=== PATIENT | male | born 2000 | race Caucasian/White ===

== ENCOUNTER 2019-11-15 19:16 | Emergency (ER) | payer MEDICAID, SELFPAY ==
--- NOTE | 2019-11-15 19:15 | RT.EKG_ITS ---
APPROVED REPORT Exam: Resting ECG Patient Location: E HR:95 bpm ECG Measurements Heart Rate 95 AXIS OK 143 P 66 QRSd 93 QRS 54 QT 323 T 37 QTc 405 Conclusion Sinus rhythm...normal P axis, V-rate 60- 99. Sinus w/ rate variation. No STEMI. I have reviewed and interpreted ECG and agree with software generated interpretation.
[2019-11-15 19:22] VITALS: BP 176/80; PULSE 109; RESP 16; TEMP 36.8; O2SAT 100
[2019-11-15 19:34] VITALS: RESP 16
--- NOTE | 2019-11-15 19:45 | DI.RAD_ITS ---
EXAM: XR CHEST 2V PA LATERAL CLINICAL HISTORY: Chest pain TECHNIQUE: 2D digital imaging was performed. COMPARISON: No exams were available for comparison FINDINGS: The heart is not enlarged. The lungs are clear and well expanded. No pleural effusion seen. Mediastin al contours appear intact. IMPRESSION: Normal chest RADIATION DOSE DELIVERED: Total DLP
--- NOTE | 2019-11-15 19:52 | ED.GENADUL_ITS ---
Discharge Plan Disposition Patient Disposition: HOME Condition: Stable Discharge Details Clinical Impression: Chest wall pain Primary Care Provider: None,None ED Provider: Miladis Duke Home Meds and New Rx's Prescriptions: No Action No Known Home Meds RF: 0 Discharge Instructions Instructions: Chest Wall Pain (ED) Additional Instructions: Follow up with primary care provider in 3-5 days. Return to ED sooner if any worsening or concerns. Increase oral fluids. Please take Tylenol or Ibuprofen with food every 4-6 hours as needed for pain and swelling. Today your chest x- ray was within normal limits. Your cardiac work-up including troponin which is a cardiac specific enzyme was within normal limits. Return to the ED or be seen sooner for any fever, worsening pain, nausea vomiting or any concerns. Medical Decision Making 19-year-old male presents to the ER with left-sided chest pain. At this time work-up ordered including EKG, chest x-ray, CBC, CMP, troponin. Imaging protocol: XR of the chest Views: 2 views. COMPARISON: No relevant prior studies available. FINDINGS: Lungs: Unremarkable. No consolidation. Pleural space: Unremarkable. No pleural effusion. No pneumothorax. Heart/Mediastinum: Unremarkable. No cardiomegaly. Bones/joints: Unremarkable. IMPRESSION: No acute findings. Work-up is largely within normal limits, he does not have a white blood cell count, no leukocytosis, electrolytes are all within normal limits. Troponin is less than 0.05. He does have slightly elevated blood pressure initially was 176/80 second reading is 148/76. Differential diagnosis includes anxiety, costochondritis, coronary artery disease, pleuritis. HPI General Mode of arrival: ambulatory . Date/Time Provider Initiated Documentation: 11/15/19 19:31 . Limitations to Documentation: no limitations . Information obtained by: patient . HPI Narrative: 19-year-old male presents to the ED with chief complaint of chest pain which he reports as sharp and intermittent which started yesterday afternoon around 230. He states it radiated up his the left side of his neck and down left side of his arm. Denies any radiation into his back. No associated symptoms including nausea vomiting diarrhea. No shortness of breath or cough. Denies fever. He is normally healthy non-smoker denies any trauma. Chest pain is nonreproducible to palpation upon initial exam. Lung sounds are clear to auscultation bilaterally. Related Data Home Medications Medication Instructions Recorded Confirmed Unknown [No Known Home Meds] 11/15/19 11/15/19 Allergies Allergy/AdvReac Type Severity Reaction Status Date / Time No Known Allergies Allergy Unverified 11/15/19 19:26 General Stated Complaint: Chest Pain ELENO: 2 Review of Systems Narrative: Constitutional: Negative for weight loss, alert and oriented, well groomed, normal body habitus, appears comfortable. HEENT: Denies trauma, headaches, blurry vision, nasal discharge, sore throat, trouble swallowing. Chest: Denies palpitations, irregular rhythm, hypertension. Positive chest p ain. Respiratory: Denies Shortness of breath, cough, hemoptysis. GI: Denies abdominal pain, nausea, vomiting, diarrhea, constipation. : Denies dysuria, hematuria, flank pain, rectal bleeding. Neuro: Denies dizziness, blurry vision, weakness, syncope, headache or facial numbness. Hematologic: Denies easy bruising, intolerance to heat or cold, hair loss. [facility] Social History Smoking/Tobacco Use Status: Current-Occasional Tobacco Type: cigarettes Drug use: Daily Substance use type: marijuana Do you feel safe at home: Yes Do you feel safe in your relationship?: Yes Exam Narrative Exam Narrative: Constitutional: Alert and oriented x3. Appears stated age. Normal body habitus. Head: Normocephalic, no trauma. Eyes: Pupils PERRLA, Red reflex noted, EOM's intact. Eyelids symmetrical without lesions, discharge, or swelling. ENT: Bilateral TM's WNL, External ear normal to inspection, no mastoid TTP, swelling, or erythema, Nasal turbinates WNL, no nasal discharge. Normal de ntition, Posterior pharynx WNL, no exudate. Chest: RRR, Normal S1, S2, distal pulses intact. Resp: Lungs clear to auscultation bilaterally, no wheezes, rales, or rhonchi. Musculoskeletal: Normal gait, 5/5 strength to all four extremities. Skin: No suspicious rashes or lesions. Capillary refill less than 2 sec. Neurologic: Cranial nerves II-XII intact. Alert and oriented x 3. DTR's intact. Hematologic/Lymphatic: No ecchymosis, no lymphadenopathy. Course Vital Signs Vital signs: Vital Signs Temperature 36.8 C 11/15/19 19:22 Pulse 109 H 11/15/19 19:22 Respiratory Rate 16 11/15/19 19:22 Blood Pressure 176/80 H 11/15/19 19:22 Pulse Oximetry 100 11/15/19 19:22 Temperature 36.8 C 11/15/19 19:22 Temperature Source Skin 11/15/19 19:22 Pulse 109 H 11/15/19 19:22 Respiratory Rate 16 11/15/19 19:34 Respiratory Effort 11/15/19 19:34 Respiratory Depth Normal 11/15/19 19:34 Respiratory Pattern Normal 11/15/19 19:34 Blood Pressure 176/80 H 11/15/19 19:22 Blood Pressure Position Sitting 11/15/19 19:22 Pulse Oximetry 100 11/15/19 19:22 Oxygen Delivery Method Room Air 11/15/19 19:22 Oxygen Flow Rate 0 11/15/19 19:22 Pain Level 3 11/15/19 19:22
[2019-11-15 20:16] LABS: Abs Immature Grans 0.02 10^3/uL (0.0-0.06); Absolute Basophil Count 0.06 10^3/uL (0.0-0.2); Absolute Eosinophil Count 0.19 10^3/uL (0.0-0.7); Absolute Lymphocyte Count 2.86 10^3/uL (1.2-3.4); Absolute Monocyte Count 0.82 10^3/uL (0.1-0.8); Absolute Neutrophil Count 6.17 10^3/uL (1.2-6.7); Basophils % 0.6; Eosinophils % 1.9; HCT 48.7 % (40.0-50.0); HGB 16.6 g/dL (13.5-17.5); Immature Grans % 0.2; Lymphocytes % 28.3; MCH 30.1 pg (27.0-33.0); MCHC 34.1 % (32.0-36.0); MCV 88.4 fL (80-95); Monocytes % 8.1; Neutrophils % 60.9; Nucleated RBC 0 %; Platelet Count 257 10^3/uL (130-400); RBC 5.51 10^6/uL (4.36-5.78); RDW-SD 39.1 fL; WBC 10.12 10^3/uL (4.4-10.8)
--- NOTE | 2019-11-15 20:22 | DI.VRAD_ITS ---
PROCEDURE INFORMATION: Exam: XR Chest, 2 Views Exam date and time: 11/15/2019 7:52 PM Age: 19 years old Clinical indication: Radiating; Patient HX: Chest pain since yesterday PT states pain is spreading and worse TECHNIQUE: Imaging protocol: XR of the chest Views: 2 views. COMPARISON: No relevant prior studies available. FINDINGS: Lungs: Unremarkable. No consolidation. Pleural space: Unremarkable. No pleural effusion. No pneumothorax. Heart/Mediastinum: Unremarkable. No cardiomegaly. Bones/joints: Unremarkable. IMPRESSION: No acute findings. Dictated and Authenticated by: Tyson Kumar MD. Ordering:JAISON Redding MD
[2019-11-15 20:36] LABS: ALT 23 U/L (16-63); AST 19 U/L (15-37); Albumin 4.2 g/dL (3.4-5.0); Alkaline Phosphatase 70 U/L (46-116); BUN 17 mg/dL (7-18); Bilirubin, Total 0.4 mg/dL (0.2-1.0); CREATININE 0.89 mg/dL (0.70-1.30); Calcium 9.3 mg/dL (8.5-10.1); Chloride 102 mmol/L (98-107); Glucose 112 mg/dL (74-106); Magnesium 1.8 mg/dL (1.8-2.4); Potassium 3.5 mmol/L (3.5-5.1); Sodium 137 mmol/L (136-145); Total Protein 7.8 g/dL (6.4-8.2)
[2019-11-15] MEDS: Ketorolac 10 MG TAB PO (20:49)
[2019-11-15 20:52] LABS: Troponin I < 0.05 ng/mL (<0.06)
[2019-11-15 21:17] VITALS: BP 148/76; PULSE 91; RESP 16; O2SAT 99
== END 2019-11-15 21:10 | disposition home or self-care (01) ==
PROVIDERS: Emergency Provider Registered Nurse Emergency
DX: R07.81 Pleurodynia (principal); R03.0 Elevated blood-pressure reading, without diagnosis of hypertension
CPT/HCPCS: 36415; 80053; 93005; 99285; 71046; 83735; 84484; 85025; 93010; 99284

== ENCOUNTER 2019-12-02 18:21 | Outpatient (REF) | payer MEDICAID, SELFPAY ==
[2019-12-02 18:26] LABS: Calculated LDL 136 mg/dL (<100); Cholesterol 192 mg/dL (<200); HDL Cholesterol 43 mg/dL (40-60); Triglyceride 66 mg/dL (<150)
== END 2019-12-02 18:41 ==
LOC: LBN 18:21
PROVIDERS: Visit Provider Family Medicine
DX: R07.89 Other chest pain (principal); Z82.49 Family history of ischemic heart disease and other diseases of the circulatory system
CPT/HCPCS: 80061

== ENCOUNTER 2019-12-07 00:39 | Outpatient (CLI) | payer MEDICAID, SELFPAY ==
--- NOTE | 2019-12-07 12:30 | ETT_ITS ---
APPROVED REPORT Exam: Exercise Treadmill Patient Location: Out-Patient Room/Bed: Stress Nurse: Lashanda Ayon RN BMI: 30.04 Baseline Rhythm: Sinus Arrhythmia Comment: 0.5mm ST elevation noted in leads II, III, aVF, V2, V3, V4, V5, V6 Indications: 4/10 dull left sided chest pain radiating to neck. Pain occurs at rest daily, lasting an ywhere from 5 to 15 min. Medical History Medical History: None. Cardiac Medications: None. Allergies: No known drug allergies Cardiac Risk Factors: FHX of CAD, Smoking (former) Previous Cardiac Procedures: None. Pretest Chest Pain Characteristics: No chest pain Exercise History: Sedentary Lung Sounds: Clear to auscultation Heart Sounds: Regular Stress Test Details Test: Exercise stress testing was performed using a Osman protocol. Rest Stress HR Resting HR Supine: 79 bpm Max Heart Rate (APMHR): 199 bpm Resting HR Standin bpm Target HR (85% APMHR): 169 bpm Max HR Achieved: 197 bpm % of APMHR: 99 Recovery HR: 101 bpm HR response to stress: Normal HR response to stress BP Resting BP Supine: 122/70 mmHg Resting BP Standin/72 mmHg Max BP: 192/56 mmHg Recovery BP: 124/70 mmHg BP response to stress: Normal blood pressure response to stress. ECG Resting ECG: Sinus Arrhythmia Comment: 0.5mm ST elevation noted in leads II, III, aVF, V2, V3, V4, V5, V6 Stress ECG: Sinus Tachycardia ST Change: no significant ST segment changes noted Arrhythmia: occasional PVC, couplet Recovery ECG: Sinus Rhythm Recovery ST Change: Upsloping ST depression Lead(s): V4, V5, V6 Recovery ST Deviation: 1 mm Recovery Arrhythmia: None. Clinical Reason for Termination: Fatigue Stress Symptoms: Dizziness Exercise duration: 11 min41 sec Highest Stage Reached: Stage 4: 4.2 mph at 16% grade. Exercise capacity: 13.48 METs Stress ECG Conclusion 1. Electrocardiogram was normal 2. Patient exercised on the Osman protocol and completed a workload of 13.48 METS 3. Normal heart rate and blood pressure response to exercise. The patient achieved 99% of predicted heart rate for age 4. Electrocardiographically there was no evidence of myocardial ischemia 5. There were no significant dysrhythmias 6. Moore treadmill score score is 11, low risk Stress Test Summary STAGE Time (mins) Speed (mph) Grade (%) HR BP SYMPTOMS METS Supine 79 122/70 Standing 95 130/72 1 3 1.7 10 129 142/68 4.6 2 6 2.5 12 164 164/60 neck pulsing 7 3 9 3.4 14 188 188/64 10.2 1 min recovery 171 lightheaded 3 min recovery 124 192/56 symptoms resolved 6 min recovery 124 160/64 9 min recovery 114 140/66 12 min recovery 114 140/66 15 min recovery 108 124/70 25 min recovery 101
== END 2019-12-07 00:59 ==
PROVIDERS: Visit Provider Family Medicine
DX: R07.89 Other chest pain (principal); Z82.49 Family history of ischemic heart disease and other diseases of the circulatory system; Z87.891 Personal history of nicotine dependence
CPT/HCPCS: 93017

== ENCOUNTER 2021-01-02 16:39 | Emergency (ER) | payer MEDICAID, SELFPAY ==
[2021-01-02 16:44] VITALS: BP 159/65; PULSE 78; RESP 16; TEMP 36.5; O2SAT 98
--- NOTE | 2021-01-02 16:45 | DI.RAD_ITS ---
Exam(s) XR HAND RT COMPLETE EXAM: XR HAND RT COMPLETE CLINICAL HISTORY: Hand Injury, Pinky Finger pain R/O Fracture TECHNIQUE: COMPARISON: No exams were available for comparison FINDINGS: Three views were obtained. There is a fracture of the distal aspect of the 5th metacarpal with mild comminution. There is volar and radial angulation of distal fracture fragments. No other fracture s een. IMPRESSION: RADIATION DOSE DELIVERED: Total DLP
--- NOTE | 2021-01-02 17:04 | ED.GENADUL_ITS ---
Discharge Plan Disposition Patient Disposition: HOME Condition: Stable Discharge Details Clinical Impression: Displaced fracture of neck of right fifth metacarpal bone Primary Care Provider: Tyson Sequeira ED Provider: Miladis Duke Home Meds and New Rx's Prescriptions: No Action No Known Home Meds RF: 0 Discharge Instructions Instructions: Boxer Fracture (ED) Additional Instructions: Rest, ice, compression, elevation. Please follow-up with orthopedics this week. Keep the splint clean and dry. Loosen the Orlin wrap if your fingers turn cold blue numb or tingling. Please take Tylenol or Ibuprofen with food every 4-6 hours as needed for pain and swelling. Return to the ER if fingers continue to be cold blue numb or tingly or if you have increase pain not relieved by Tylenol or ibuprofen. Orthopedics should be contacting you for follow-up appointment however, you can also call them to make an appointment. Stand Alone Forms: Work Release Referrals: Jere Díaz MD [ [facility] STAFF PHYSICIAN] - Medical Decision Making 20-year-old male presents to the ER with chief complaint of right hand pain status post injury approximately 5 days ago on night. Patient reports she was at work and punched a box of frozen turkey. Since then he is had some lateral hand pain and states digit pain. He is having trouble extending fully his right pinky. He does have a healing contusions noted to the dorsum of his hand. Cap refill less than 2 seconds CMS intact distally. Patient reports that he initially started taking naproxen but he ran out so he has been taking aspirin which he took twice today. 1722: Spoke with Dr. Díaz with orthopedics who was able to personally view the x-rays. He recommends a plaster ulnar gutter boxers splint and also attempting at a Patrick maneuver closed reduction. Will discuss digital block with patient and closed reduction and splint application with follow-up with orthopedics. Discussed digital block with patient who verbalized understanding and is in agreement with plan. See procedure note above, attempt at the SOLO maneuver to reduce the fracture performed. Plaster ulnar gutter boxer splint applied. CMS intact post splint application. Post-reduction x-rays show minimal movement of the distal neck of the fifth metacarpal, instructed patient to follow-up with orthopedics he verbalizes understanding. Imaging protocol: XR Right hand. Views: 1 or 2 views. COMPARISON: CR XR HAND RT COMPLETE 01/02/2021 5:06 PM FINDINGS: Bones/joints: Fifth metacarpal fracture again seen. No substantial change in alignment. Soft tissues: Unremarkable Other findings: Casting material not present. IMPRESSION: No adverse change Thank you for allowing us to participate in the care of your patient. Dictated and Authenticated by: Kenn Cortes MD Imaging protocol: XR Right hand. Views: 1 or 2 views. COMPARISON: CR XR HAND RT COMPLETE 01/02/2021 5:06 PM FINDINGS: Bones/joints: Fifth metacarpal fracture again seen. No substantial change in alignment. Soft tissues: Unremarkable Other findings: Casting material not present. IMPRESSION: No adverse change Thank you for allowing us to participate in the care of your patient. Dictated and Authenticated by: Kenn Cortes MD Discussed follow-up with patient he verbalized understanding. Patient placed on the orthopedic follow-up plan for care management instructed on rest ice compression elevation and splint care and strict return instructions, verbalized understanding. This text was generated using [employer] system, please disregard any oddities of phrase or misspellings. HPI General Mode of arrival: ambulatory . Date/Time Provider Initiated Documentation: 01/02/21 16:51 . Limitations to Documentation: no limitations . Information obtained by: patient and RN notes reviewed . HPI Narrative: 20-year-old male presents to the ER with chief complaint of right hand pain status post injury approximately 5 days ago on night. Patient reports she was at work and punched a box of frozen turkey. Since then he is had some lateral hand pain and states digit pain. He is having trouble extending fully his right pinky. He does have a healing contusions noted to the dorsum of his hand. Cap refill less than 2 seconds CMS intact distally. Patient reports that he initially started taking naproxen but he ran out so he has been taking aspirin which he took twice today. Related Data Home Medications Medication Instructions Recorded Confirmed Unknown [No Known Home Meds] 11/15/19 01/02/21 Allergies Allergy/AdvReac Type Severity Reaction Status Date / Time No Known Allergies Allergy Verified 01/02/21 16:49 General Stated Complaint: Orthopedic ELENO: 4 Review of Systems All systems reviewed & are unremarkable except as noted in HPI and below Musculoskeletal Musculoskeletal: Reports as per HPI and Reports limited range of motion [facility] Active Problem List (Updated 01/02/21 @ 18:33 by Miladis Duke) Displaced fracture of neck of right fifth metacarpal bone (Acute) Bloating (Acute) Chronic diarrhea (Acute) Family history of early CAD (Acute) Medical History (Updated 01/02/21 @ 18:33 by Miladis Duke) Broken arm Social History (Updated 12/02/19 @ 09:39 by Bethany Breen LPN) Smoking/Tobacco Use Status: Current-Occasional Smoking risk assessment performed?: Yes Alcohol Intake: current Alcohol Intake frequency: a few times a month Drug use: Daily Substance use type: marijuana Household members: family current occupation: works at [employer]. 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 Working smoke detector in home: Yes Carbon monox detector in home: Yes Do you feel safe at home: Yes Do you feel safe in your relationship?: Yes Exam Extrem Right upper extremity: hand Details: normal capillary refill, neuromotor exam normal, neurosensory exam normal, tendon exam normal, tenderness (Right lateral hand pain) Location: of the dorsal hand and of the 5th digit (Decreased extension) Location: at the MCP joint and swelling Course Vital Signs Vital signs: Vital Signs Temperature 36.5 C 01/02/21 16:44 Pulse 78 01/02/21 16:44 Respiratory Rate 16 01/02/21 16:44 Blood Pressure 159/65 H 01/02/21 16:44 Pulse Oximetry 98 01/02/21 16:44 Temperature 36.5 C 01/02/21 16:44 Temperature Source Skin 01/02/21 16:44 Pulse 78 01/02/21 16:44 Respiratory Rate 16 01/02/21 16:44 Respiratory Effort Non-Labored 01/02/21 16:44 Blood Pressure 159/65 H 01/02/21 16:44 Blood Pressure Position Sitting 01/02/21 16:44 Pulse Oximetry 98 01/02/21 16:44 Oxygen Delivery Method Room Air 01/02/21 16:44 Oxygen Flow Rate 0 01/02/21 16:44 Pain Level 3 01/02/21 16:44 Comment 01/02/21 16:44 Procedures Nerve Block Nerve Block 1: Time out performed: No Local Anesthetic: Lidocaine 1% and Bupivicaine 0.5% Amount of anesthesia used (mL): 2.5 Side: right Nerve Blocks: digital Procedure Successful: Yes Patient Tolerated Procedure: well and no complications Complications: none Orthopedic Fracture Reduction Fracture #1: Time Out Performed: Yes Side: right Fracture Reduction Location: metacarpal Analgesia: digital block Technique: direct manipulation (Attempted Patrick maneuver) and traction/counter-traction Post-reduction neuro exam: intact Post-reduction vascular exam: intact Splint Applied: Yes Patient Tolerated Procedure: well
[2021-01-02] MEDS: Acetaminophen 325 MG TAB 650 MG PO (17:19)
--- NOTE | 2021-01-02 17:39 | DI.VRAD_ITS ---
PROCEDURE INFORMATION: Exam: XR Right Hand Exam date and time: 01/02/2021 4:51 PM Age: 20 years old Clinical indication: Other: Hand injury, pinky finger pain R/O FX TECHNIQUE: Imaging protocol: XR Right hand. Views: 3 or more views. COMPARISON: No relevant prior studies available. FINDINGS: Bones/joints: A mildly impacted and angulated fracture seen of the 5th metacarpal neck. The fracture is mildly comminuted. No additional fractures. Soft tissues: Soft tissues are mildly swollen in the 5th ray. IMPRESSION: Fifth metacarpal fracture as above Dictated and Authenticated by: Kenn Cortes MD. Ordering:JAISON Redding MD
--- NOTE | 2021-01-02 18:00 | DI.RAD_ITS ---
Exam(s) XR HAND RT LIMITED EXAM: XR HAND RT LIMITED CLINICAL HISTORY: Post reduction, 5th finger TECHNIQUE: COMPARISON: CR,XR XR HAND RT COMPLETE from 01/02/2021 FINDINGS: Three views were obtained. Previous described fracture of the 5th metacarpal head again noted, uncha nged in appearance comparison with earlier films. The hand is in a splint. IMPRESSION: RADIATION DOSE DELIVERED: Total DLP
--- NOTE | 2021-01-02 18:22 | DI.VRAD_ITS ---
PROCEDURE INFORMATION: Exam: XR Right Hand Exam date and time: 01/02/2021 6:07 PM Age: 20 years old Clinical indication: Other: Post reduction, 5th finger TECHNIQUE: Imaging protocol: XR Right hand. Views: 1 or 2 views. COMPARISON: CR XR HAND RT COMPLETE 01/02/2021 5:06 PM FINDINGS: Bones/joints: Fifth metacarpal fracture again seen. No substantial change in alignment. Soft tissues: Unremarkable Other findings: Casting material not present. IMPRESSION: No adverse change Dictated and Authenticated by: Kenn Cortes MD. Ordering:JAISON Redding MD
== END 2021-01-02 18:42 | disposition home or self-care (01) ==
PROVIDERS: Emergency Provider Registered Nurse Emergency; PCP Family Medicine
DX: S69.91XA Unspecified injury of right wrist, hand and finger(s), initial encounter (principal); S62.336A Displaced fracture of neck of fifth metacarpal bone, right hand, initial encounter for closed fracture; W22.09XA Striking against other stationary object, initial encounter
CPT/HCPCS: 26600; 73120; 73130

== ENCOUNTER 2021-01-09 11:01 | Outpatient (CLI) | payer MEDICAID, SELFPAY ==
[2021-01-09 12:21] LABS: Source Nasal/Nares
[2021-01-09 19:51] LABS: COVID-19 PCR Negative (Negative)
== END 2021-01-09 11:02 | disposition home or self-care (01) ==
LOC: LBO 11:01
PROVIDERS: PCP Family Medicine; Visit Provider Student in an Organized Health Care Education/Training Program
DX: Z20.822 Contact with and (suspected) exposure to COVID-19 (principal)
CPT/HCPCS: 87635

== ENCOUNTER 2021-01-09 11:29 | Outpatient (CLI) | payer MEDICAID, SELFPAY ==
--- NOTE | 2021-01-09 10:15 | DI.RAD_ITS ---
Exam(s) XR HAND RT COMPLETE EXAM: XR HAND RT COMPLETE CLINICAL HISTORY: FIFTH METACARPAL BONE FX F/U. TECHNIQUE: 2D digital imaging was performed of the right hand. Three images were obtained. AP, late ral and oblique views were obtained. COMPARISON: CR,XR XR HAND RT LIMITED from 01/02/2021 FINDINGS: BONES: There has been no change in alignment of the right 5th metacarpal fracture. The patient's wri st is in a splint. No bony destructive lesion is seen. JOINTS: No dislocation present. SOFT TISSUE: Normal. IMPRESSION: Stable right 5th metacarpal fracture. DATA REPOSITORY: RADIATION DOSE DELIVERED:
== END 2021-01-09 11:30 | disposition home or self-care (01) ==
LOC: DIORS 11:29
PROVIDERS: PCP Family Medicine; Referring Provider Family Medicine; Visit Provider Student in an Organized Health Care Education/Training Program
DX: S62.336D Displaced fracture of neck of fifth metacarpal bone, right hand, subsequent encounter for fracture with routine healing (principal)
CPT/HCPCS: 73130

== ENCOUNTER 2021-01-11 07:57 | Day surgery (SDC) | payer MEDICAID, SELFPAY ==
[2021-01-11] VITALS (7 sets, daily range): BP systolic 130–155; BP diastolic 56–85; PULSE 52–100; RESP 13–18; TEMP 36.2–37.1; O2SAT 95–99; BMI 31.6
--- NOTE | 2021-01-11 08:31 | ANES.PREOP_ITS ---
General Info Date of Service Date Performed: 01/11/21 Height: 6 ft 1 in Weight: 108.862 kg Body Mass Index (BMI): 31.6 Surgical Procedure: Operation Date: 01/11/21 09:55 Proposed Procedures Side Surgeon p right small finger metacarpal closed reduction, possible perc pinning and splinting Right Jered Farnsworth MD Meds Allergies and Home Medications Allergies Allergy/AdvReac Type Severity Reaction Status Date / Time No Known Allergies Allergy Verified 01/11/21 08:28 Home Medication Medication Instructions Recorded Unknown [No Known Home Meds] 11/15/19 Current Visit Medications: Current Medications Generic Name Dose Route Start Last Admin Trade Name Freq PRN Reason Stop Dose Admin Ringer's Solution 1,000 mls @ 100 mls/hr 01/11/21 06:00 IV 02/09/21 23:59 INFUSION BREA Cefazolin Sodium/Dextrose 2 gm in 50 mls @ 100 mls/hr 01/11/21 06:00 Ancef Duplex IVPB 01/11/21 16:00 PREOP BREA IV Miscellaneous Supplies 1 each 01/11/21 06:00 Iv Access IV 02/09/21 23:59 DIRECTED BREA Naproxen 250 - 500 mg 01/11/21 07:25 Naproxen 500 Mg Tab PO BID PRN PRN Oxycodone HCl 5 - 10 mg 01/11/21 07:25 Oxycodone 5 Mg Tab PO Q4H PRN PRN Sodium Chloride 0 ml 01/11/21 06:00 Normal Saline Flush 10 Ml Syr IV 02/09/21 23:59 PRN PRN Sodium Chloride 0 ml 01/11/21 06:00 Normal Saline 10 Ml Vial IJ 02/09/21 23:59 DIRECTED PRN Sterile Water 0 ml 01/11/21 06:00 Water,Injection,Sterile 10 Ml Vial IJ 02/09/21 23:59 DIRECTED PRN PFSH Active Problems Active Problems: Problem Status Onset Code Family history of early CAD Z82.49 Chronic diarrhea K52.9 Bloating R14.0 Displaced fracture of neck of right fifth metacarpal bone 01/02/21 S62.336A Medical History Active Problem List Family history of early CAD (Acute) Chronic diarrhea (Acute) Bloating (Acute) Displaced fracture of neck of right fifth metacarpal bone (Acute 01/02/21) Medical History Broken arm Surgical History Surgical History (Updated 01/11/21 @ 08:27 by Thais Bonilla RN) History of dental surgery (2009) tooth extraction History of open reduction and internal fixation (ORIF) procedure (2005) left elbow- hardware removed six months after Tobacco Smoking/Tobacco Use Status: Current-Occasional Alcohol Alcohol Intake: current Alcohol intake frequency: a few times a month Substance Use Substance use: Daily Substance use type: marijuana Vital Signs and Lab Results Lab Results Blood Type / Crossmatch: No Data to Display Complete Blood Count: No Data to Display Complete Metabolic Panel: No Data to Display Liver Function Panel: No Data to Display Coagulation Panel: 2 No Data to Display Cardiac Panel: No Data to Display Arterial Blood Gas: No Data to Display Venous Blood Gas: No Data to Display Pancreas Panel: No Data to Display Thyroid Panel: No Data to Display Infectious Disease: Coronavirus (COVID-19)(PCR) Negative (Negative) 01/09/21 11:18 01/09/21 Coronavirus 2019 Source Nasal/Nares 01/09/21 11:18 01/09/21 Blood Cultures: No Data to Display Toxicology Panel: No Data to Display Imaging and Studies Imaging and Studies EKG Summary: Conclusion Sinus rhythm...normal P axis, V-rate 60- 99. Sinus w/ rate variation. No STEMI. Stress Test Summary: Stress ECG Conclusion 1. Electrocardiogram was normal 2. Patient exercised on the Osman protocol and completed a workload of 13.48 METS 3. Normal heart rate and blood pressure response to exercise. The patient achieved 99% of predicted heart rate for age 4. Electrocardiographically there was no evidence of myocardial ischemia 5. There were no significant dysrhythmias 6. Moore treadmill score score is 11, low risk Anesthesia Assessment and Plan Anesthesia History Personal History: No History of Anesthesia Complications Family History: No Family History of Anesthesia Complications Exercise Tolerance Exercise Tolerance: Metabolic Equivalents>4 Pertinent Negatives Pertinent Negatives: No Symptoms of GERD Cardiac & Pulmonary Exam Cardiac Exam: Normal S1/S2 Heart Sounds Pulmonary Exam: Clear Bilateral Breath Sounds Implantable Cardiac Device Does patient have a Pacemaker or an ICD?: No Airway Exam Known Difficult Airway: No Mallampati Class: 2 Mouth Opening: Normal (> 3cm) Thyromental Distance: Greater than 3 cm Neck Range of Motion: Full ROM Neck Circumference: Normal Teeth Condition: Normal Dentition ASA Classification ASA Score: ASA 2 Emergency Case?: No NPO Status NPO Status: NPO Clears >2 hours, Solids >8 hours Anesthesia Plan Resuscitation Status: Full Code Anesthesia Technique: General Anesthesia Airway Planned: Natural Airway Monitors Used: Standard Monitors
[2021-01-11] MEDS: Lactated Ringers 1,000 ML 100 ML IV (09:11)
[2021-01-11] MEDS: ceFAZolin 2 GM/50 ML BAG IVPB (09:36)
--- NOTE | 2021-01-11 10:05 | DI.RAD_ITS ---
Exam(s) XR HAND RT LIMITED EXAM: XR HAND RT LIMITED CLINICAL HISTORY: displaced fracture right 5th finger. TECHNIQUE: 2D and realtime digital imaging was performed. CONTRAST MATERIAL: Oral barium Oral water soluble contrast was administered. COMPARISON: CR,XR XR HAND RT LIMITED from 01/02/2021 CR XR HAND RT COMPLETE from 01/09/2021 CR XR HAND RT COMPLETE from 01/09/2021 FINDINGS: Fluoroscopy was provided during close reduction of 5th metacarpal fracture. See procedure report for further details IMPRESSION: Total fluoroscopy time 18 seconds Cumulative dose 0.0920mGy RADIATION DOSE DELIVERED: Ka,r= mGy
[2021-01-11] MEDS: Bupivacaine 0.5% Pres-Free 30 ML VIAL (10:06)
--- NOTE | 2021-01-11 10:37 | PDOC.DSDIS_ITS ---
Discharge Plan Disposition Patient Disposition: HOME Condition: Stable Discharge Details Reason For Visit: Right hand fracture Attending Provider: Jered Farnsworth Primary Care Provider: Tyson Sequeira Home Meds and New Rx's Prescriptions: New oxycodone 5 mg tablet 5 - 10 mg PO Q4H PRN (Reason: moderate to severe pain) Qty: 7 RF: 0 naproxen 250 mg tablet 250 - 500 mg PO BID PRN (Reason: Moderate pain or swelling) Qty: 30 RF: 0 Discharge Instructions Additional Instructions: Surgery: Right fifth metacarpal closed reduction and splinting Activity: Nonweightbearing right hand. Recommend elevation to minimize swelling and discomfort. May loosen or adjust Orlin wrap as needed. Prescriptions: Naproxen 250 mg take 1-2 every 12 hours with a meal as needed for moderate pain Oxycodone 5 mg take 1-2 every 4-6 hours as needed for severe pain You may use [id number] Tylenol (acetaminophen) as needed for mild pain. These pain medications may be taken all at once or in different combinations as needed. Also, recommend Colace (docusate) as a stool softener as surgery and pain medicine cause constipation. Dressings: Leave splint and dressing in place until follow-up. Keep clean and dry at all times. Follow-up: 10-[address] Farnsworth Let us know right away if you develop any redness, drainage, fevers, chest pain, or trouble breathing. Do not drink alcohol or drive for at least 24 hours after anesthesia. Please call the office during business hours with any questions or concerns. Referrals: Jered Farnsworth MD [ [facility] STAFF PHYSICIAN] - Discharge Orders Discharge Orders: Discharge Order (Routine); Ordered 01/11/21 Ordered By: Jered Farnsworth DS: Diagnosis Discharge Diagnosis (1) Displaced fracture of neck of right fifth metacarpal bone: Status: Acute
[2021-01-11] MEDS: Ketorolac 15 MG/ML VIAL IVP (10:45)
[2021-01-11] MEDS: Naproxen 500 MG TAB PO (11:23)
--- NOTE | 2021-01-11 11:43 | W.ANESPOSTOP ---
Postoperative Evaluation Date, Time and Location Date Performed: 01/11/21 Time Performed: 11:44 Patient Location: Day Surgery Unit Vital Signs Most Recent Imported Vital Signs: Most Recent Vital Signs Temp Pulse Resp BP Pulse Ox 36.5 C 52 L 18 132/74 98 01/11/21 11:09 01/11/21 11:09 01/11/21 11:09 01/11/21 11:09 01/11/21 11:09 Pain Score Most Recent Pain Score: Most Recent Pain Score Pain Level 0 01/11/21 11:09 Assessment Mental Status: Awake (Alert & Oriented to Patient Baseline) Airway and Respiratory Function: Patent airway with normal (patient baseline) respiratory exam Cardiovascular Function: Hemodynamically Stable Hydration Status: Adequately Hydrated Nausea & Vomiting: No Nausea or Vomiting Pain: Pt. Denies Any Pain Peripheral Nerve Block: Patient did not receive a nerve block
--- NOTE | 2021-01-11 12:39 | ROE_ITS ---
Date of service: 01/11/21 Time of Service: 10:00 Operative Note Operative Note DATE OF PROCEDURE: 01/11/21 PRE-OP DIAGNOSIS: Right hand displaced fifth metacarpal neck fracture POST-OP DIAGNOSIS: same PROCEDURE: Right fifth metacarpal closed reduction and splinting, CPT 16954 SURGEON: Jered Farnsworth MANAGEMENT ACCOUNTS MANAGER: Angus Levy ANESTHESIA TYPE: Local By Surgeon and General:No Airway Refer to Anesthesia Record ESTIMATED BLOOD LOSS: 0 TOURNIQUET TIME: 0 COMPLICATIONS: None Patient was transported to: PACU Patient's condition: stable Implants: None Indications: Please see complete medical record for details. Findings: Displaced fifth metacarpal neck fracture, stable once reduced Procedure Description: In the operating room, monitored anesthesia care was induced. The patient was positioned supine on the operating room table. All bony prominences were well-padded. Preoperative antibiotics were supposed to be omitted for closed reduction. The correct patient, procedure, and side of the procedure were all verified prior to beginning. The fracture site was palpated and 10 cc of 0.5% bupivacaine containing epinephrine was infiltrated about the metacarpal and fracture site. Direct manipulation with gentle osteolysis and traction initially to loosen up subacute fracture followed by flexion MCP J 90 degrees and posterior dorsal directed force while proximal downward pressure was maintained in the metacarpal with the wrist in flexion was used driving the metacarpal neck into partially reduced position. Reduction was then optimized using fluoroscopic guidance with slight ulnar force and repeat reduction of flexion deformity. There was excellent alignment of the metacarpal neck fracture. The hand was gently positioned without reduction aid in fracture position was maintained. Decision was made to omit any percutaneous K wire fixation. An ulnar gutter plaster well molded splint was applied with the wrist in proper extension MCP J in deep flexion with a similar reduction force and direct pressure proximally over the dorsal metacarpal. Splint was maintained in proper position until hard. Final C arm images confirmed appropriate splint and fracture placement and alignment. The patient awoke from anesthesia without complication and was transferred to the recovery room in a stable condition.
== END 2021-01-11 12:06 | disposition home or self-care (01) ==
PROVIDERS: PCP Family Medicine; Visit Provider Student in an Organized Health Care Education/Training Program
PROC: (CPT 26727; principal; 2021-01-11 09:45)
DX: S62.336A Displaced fracture of neck of fifth metacarpal bone, right hand, initial encounter for closed fracture (principal); W22.09XA Striking against other stationary object, initial encounter
CPT/HCPCS: 26605; 73120; J0690; J1100; J1885; J2250; J2405

== ENCOUNTER 2021-01-24 11:34 | Outpatient (CLI) | payer MEDICAID, SELFPAY ==
--- NOTE | 2021-01-24 10:00 | DI.RAD_ITS ---
Exam(s) XR HAND RT LIMITED EXAM: XR HAND RT LIMITED CLINICAL HISTORY: Fifth metacarpal fx f/u. TECHNIQUE: 2D digital imaging was performed. COMPARISON: CR,XR XR HAND RT COMPLETE from 01/02/2021 CR,XR XR HAND RT COMPLETE from 01/02/2021 CR XR HAND RT COMPLETE from 01/09/2021 FINDINGS: In splint views reveal stable alignment at the fracture site in the distal 5th metacarpal. Fracture line still faintly visible. IMPRESSION: DATA REPOSITORY: RADIATION DOSE DELIVERED:
== END 2021-01-24 11:35 | disposition home or self-care (01) ==
LOC: DIORS 11:34
PROVIDERS: PCP Family Medicine; Referring Provider Family Medicine; Visit Provider Student in an Organized Health Care Education/Training Program
DX: S62.336D Displaced fracture of neck of fifth metacarpal bone, right hand, subsequent encounter for fracture with routine healing (principal); X58.XXXD Exposure to other specified factors, subsequent encounter
CPT/HCPCS: 73120

== ENCOUNTER 2021-02-21 09:37 | Outpatient (CLI) | payer MEDICAID, SELFPAY ==
--- NOTE | 2021-02-21 08:00 | DI.RAD_ITS ---
Exam(s) XR HAND RT LIMITED EXAM: XR HAND RT LIMITED CLINICAL HISTORY: metacarpal fx f/u. TECHNIQUE: 2D digital imaging was performed. COMPARISON: CR,XR XR HAND RT COMPLETE from 01/02/2021 CR XR HAND RT COMPLETE from 01/09/2021 and 01/02/2021 FINDINGS: Cast has been removed. The healing fracture at the level of the neck of the 5th metacarpal is noted. Exhibits significant healing. No further displacement. No other fractures identified. No radiopa que foreign body. IMPRESSION: DATA REPOSITORY: RADIATION DOSE DELIVERED:
== END 2021-02-21 09:38 | disposition home or self-care (01) ==
LOC: DIORS 09:37
PROVIDERS: PCP Family Medicine; Visit Provider Student in an Organized Health Care Education/Training Program
DX: S62.336D Displaced fracture of neck of fifth metacarpal bone, right hand, subsequent encounter for fracture with routine healing (principal); X58.XXXD Exposure to other specified factors, subsequent encounter
CPT/HCPCS: 73120

== ENCOUNTER 2022-09-18 15:33 | Emergency (ER) | payer MEDICAID, SELFPAY ==
[2022-09-18 15:42] VITALS: BP 133/72; PULSE 67; RESP 20; TEMP 36.7; O2SAT 98
--- NOTE | 2022-09-18 15:44 | W.ED.GENAD ---
Discharge Plan Disposition Patient Disposition: Home Discharge Details Clinical Impression: Right ankle sprain Primary Care Provider: Tyson Sequeira ED Provider: Nas Tapia Home Meds and New Rx's Prescriptions: No Action No Known Home Meds Discharge Instructions Instructions: Ankle Sprain (ED) Additional Instructions: At this time the x-ray shows no evidence of fracture. You likely have a mild sprain for your ankle. Please continue to take Tylenol and Motrin as needed for pain. Ice the area frequently. It is also good to keep it wrapped. Please use the lace up ankle splint to help increase stability for your ankle. I would utilize this for the next 1 to 2 weeks as your ankle ligaments heal. If you notice any worsening of your symptoms, or any new symptoms such as vomiting, diarrhea, fever, chills, shortness of breath, chest pain, numbness, weakness, or fainting , please return immediately to the emergency department for reevaluation. Please follow up with your primary care provider as soon as possible for reassessment and reevaluation. As always, it was a pleasure participating in your medical care today. Referrals: Tyson Sequeira DO [Primary Care Provider] - Medical Decision Making 22-year-old male with no significant past medical history presents today for evaluation of right ankle pain. Patient states that about an hour or so ago he was on the basketball court playing when he went into a full sprint and accidentally inverted his ankle causing immediate pain. He heard no pop. He wrapped the ankle and came to the ER for further assessment. Pain is made slightly worse with movement and ambulation. Improved by nothing otherwise. He has not taken any NSAIDs. He denies any numbness or tingling. No previous injury to that area. Exam demonstrates minimal tenderness by the anterior talofibular ligament, no other significant bony tenderness. No significant joint laxity. Differential is highest for ankle sprain. Will get an x-ray to rule out fracture, give Tylenol and Motrin, monitor closely and reassess. X-ray negative for acute process per radiology. Recommend NSAIDs. Will give lace up ankle brace. Discussed red flags which to return. I have extensively reviewed the treatment plan and discharge instructions with the patient. I have addressed all patient concerns at this time. The patient was made aware of what symptoms to monitor for that would warrant a return to the emergency department. Discussed the plan with the patient, they demonstrate verbal understanding and agreement with our assessment and plan at this time. The documentation in this chart was dictated using [employer] dictation software. Please excuse any dictation errors. FINDINGS: BONES: No acute fracture is present. No bony destructive lesion is seen. JOINTS: The ankle mortise is normally aligned. SOFT TISSUE: Normal. IMPRESSION: Unremarkable radiographs of the right ankle. HPI General Date/Time Provider Initiated Documentation: 09/18/22 15:43. HPI Narrative: 22-year-old male with no significant past medical history presents today for evaluation of right ankle pain. Patient states that about an hour or so ago he was on the basketball court playing when he went into a full sprint and accidentally inverted his ankle causing immediate pain. He heard no pop. He wrapped the ankle and came to the ER for further assessment. Pain is made slightly worse with movement and ambulation. Improved by nothing otherwise. He has not taken any NSAIDs. He denies any numbness or tingling. No previous injury to that area. Related Data Home Medications Medication Instructions Recorded Confirmed Unknown [No Known Home Meds] 01/24/21 09/18/22 Allergies Allergy/AdvReac Type Severity Reaction Status Date / Time No Known Allergies Allergy Verified 09/18/22 15:46 General ELENO: 4 Review of Systems All systems reviewed & are unremarkable except as noted in HPI and below PFSH All Active Problems (Updated 09/18/22 @ 15:47 by Nas Tapia DO) Right ankle sprain (Acute) Family history of early CAD (Acute) Chronic diarrhea (Acute) Bloating (Acute) 04/13/20 GI [place] Displaced fracture of neck of right fifth metacarpal bone (Acute 01/02/21) Medical History Broken arm Surgical History History of dental surgery (2009) tooth extraction History of open reduction and internal fixation (ORIF) procedure (2005) left elbow- hardware removed six months after Social History Smoking/Tobacco Use Status: Current-Occasional Tobacco Type: e-cigarettes Smoking risk assessment performed?: Yes Alcohol Intake: current Alcohol Intake frequency: a few times a month Alcohol type: beer and hard liquor Drug use: Daily Substance use type: marijuana Details: throughout the day last alcoholic beverage two weeks ago, used marijuana last night 1999 Household members: family current occupation: works at [employer]. 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 3.ENT: Atraumatic external nose and ears. Moist MM. Neck: Symmetric, trachea midline, No thyromegaly. 4.CVS: +S1/S2, No murmurs or gallops. Peripheral pulses 2+ and equal in all extremities. Brisk capillary refill in all extremities. 5.RESP: Unlabored respiratory effort. Clear to auscultation bilaterally. No wheezes rales or rhonchi 6.GI: Soft, Nontender/Nondistended, No hepatosplenomegaly. No guarding or rebound. 7.MSK: Right ankle demonstrates minimal swelling around the lateral malleolus. Minimal tenderness in the inferior anterior aspect. No tenderness throughout the rest of the tarsals or metatarsals or calcaneus. Good range of motion, no significant laxity. Mild pain with inversion of the foot, but no significant pain with eversion plantarflexion dorsiflexion or other movements. Brisk capillary refill is present. Normal sensation throughout. 8.Skin: Warm, Dry. No rashes or lesions. 9.Neuro: trimming machine set up operator II-XII grossly intact. Sensation grossly intact, no focal neurologic deficits. 10.Psych: (AAO) x3. Appropriate mood and affect
--- NOTE | 2022-09-18 16:20 | DI.RAD_ITS ---
Exam(s) XR ANKLE RT COMPLETE EXAM: XR ANKLE RT COMPLETE CLINICAL HISTORY: lateral ankle pain after fall, eval for fx. TECHNIQUE: 2D digital imaging was performed of the right ankle. Three images were obtained. AP, la teral and oblique views were obtained. COMPARISON: No exams were available for comparison FINDINGS: BONES: No acute fracture is present. No bony destructive lesion is seen. JOINTS: The ankle mortise is normally aligned. SOFT TISSUE: Normal. IMPRESSION: Unremarkable radiographs of the right ankle. DATA REPOSITORY: RADIATION DOSE DELIVERED:
[2022-09-18 16:48] VITALS: BP 126/68; PULSE 88; RESP 16; O2SAT 98
== END 2022-09-18 16:55 | disposition home or self-care (01) ==
LOC: ER 15:49
PROVIDERS: Emergency Provider Student in an Organized Health Care Education/Training Program; PCP Family Medicine
DX: S93.401A Sprain of unspecified ligament of right ankle, initial encounter (principal); Y99.8 Other external cause status; Y93.67 Activity, basketball
CPT/HCPCS: 99283; 73610

== ENCOUNTER 2023-06-17 15:28 | Emergency (ER) | payer MEDICAID, SELFPAY ==
[2023-06-17 15:36] VITALS: BP 144/62; PULSE 64; RESP 18; TEMP 36.9; O2SAT 99
--- NOTE | 2023-06-17 15:54 | ED.GENADUL_ITS ---
Discharge Plan Disposition Patient Disposition: Home Condition: Stable Discharge Details Clinical Impression: Puncture wound of right hand Primary Care Provider: Tyson Sequeira ED Provider: Nas Reeder Home Meds and New Rx's Prescriptions: New sulfamethoxazole-trimethoprim 800-160 mg tablet 1 tab PO BID 7 Days Qty: 14 0RF Discharge Instructions Instructions: Sulfamethoxazole/Trimethoprim (By mouth), Puncture Wound (ED) Additional Instructions: You were seen in the emergency department for the minor puncture wound of your right hand. It looks mildly infected. I am starting you on an antibiotic sent to [facility] in [place] for this, take that as directed. Perform hot compresses with clean soapy water multiple times per day as we discussed. Please use therapeutic dosing of Tylenol (acetamenophen) & Advil (ibuprofen) in an alternating fashion as follows: Take 1000mg of Tylenol every 6 hours without missing doses- that is 4 times per day. Longterm in between the Tylenol dosings, take 400-600mg of Advil also on a 6 hour schedule, that is also 4 times per day. The daily maximum dosing of Tylenol is 4000mg, and the daily maximum dosing of Advil is 2400mg. This is safe to do for weeks. Please note that some common cold medications & prescription pain medications may contain acetamenophen and you need to read OTC drug labels and factor that in to maximum daily dosings. Please watch for signs of worsening infection like increasing redness, red streaking up the arm, fever, severe increase in pain despite treatment. Return for any of these. You should begin to see significant improvement by day 3 on antibiotics. We updated your tetanus shot today. Referrals: Tyson Sequeira DO [Primary Care Provider] - Discharge Data Discharge Date/Time-TO BE ENTERED AT DEPARTURE: 06/17/23 16:14 HPI General Date/Time Provider Initiated Documentation: 06/17/23 15:38 . HPI Narrative: 23 year-old male presents to ED today by POV/ambulating with a chief complaint of concern over increase in pain from a very minor puncture wound from a nail in a board with onset yesterday. Quality described as increase in pain and appearance of some pinkish skin around the puncture wound, no radiation to fever, red streaking up the arm. Severity is described as 0-1/10. Palliating factors include nothing specific attempted. Provoking factors include nothing specific. Events leading up to the incident/Associated Symptoms: Patient is unsure of last Tdap. Patient not anticoagulated. Related Data Home Medications Medication Instructions Recorded Confirmed sulfamethoxazole 800 1 tab PO BID cellulitis 7 days #14 06/17/23 mg-trimethoprim 160 mg tablet tabs Previous Rx's Medication Instructions Recorded sulfamethoxazole 800 1 tab PO BID cellulitis 7 days #14 06/17/23 mg-trimethoprim 160 mg tablet tabs Allergies Allergy/AdvReac Type Severity Reaction Status Date / Time No Known Allergies Allergy Verified 06/17/23 15:39 General Stated Complaint: Laceration ELENO: 4 Review of Systems All systems reviewed & are unremarkable except as noted in HPI and below Exam Narrative Exam Narrative: GENERAL APPEARANCE: Well-nourished, non-toxic, awake and alert, atraumatic, no acute distress. SKIN: Warm, pink, dry, intact, very superficial not full thickness puncture into hypothenar eminence of R hand, circulation/sensation intact in all fingers, no mejia erythema, no purulent drainage, no lymphadenitis HEAD: Normocephalic, atraumatic, normal hair distribution for gender/age. EYES: Pupils PERRLA, EOMs intact without nystagmus, normal conjunctiva, no exudates on lids/lashes. ENT: Nares patent, no circumoral cyanosis, no facial swelling NECK: Supple, trachea midline, painless cervical ROM. LUNGS/CHEST: Non-labored respirations, normal A/P diameter, symmetrical expansion, no chest wall deformity HEART (CV/PV): Regular rate, R radial pulse 2+, no peripheral edema, no JVD. ABDOMEN: Soft, non-distended, no guarding. MSK: Normal ROM, no swelling/deformity to bilateral UEs or LEs, moving all extremities without weakness, no cyanosis, spine midline without tenderness, normal curvature. NEURO: Mental Status AAOx4 - alert to person, place, time, events No facial droop, no forehead involvement. Motor: No focal weakness - strength 5/5 in bilateral UEs and LEs, proximal and distal, symmetric. Sensory: sensation intact to light touch globally. Gait normal: patient ambulated without ataxia into ED room. PSYCH: euthymic, cooperative, pleasant, appropriate speech Course Vital Signs Vital signs: Vital Signs Temperature 36.9 C 06/17/23 15:36 Pulse 64 05/07/24 15:36 Respiratory Rate 18 06/17/23 15:36 Blood Pressure 144/62 H 06/17/23 15:36 Pulse Oximetry 99 06/17/23 15:36 Temperature 36.9 C 06/17/23 15:36 Temperature Source Skin 06/17/23 15:36 Pulse 64 06/17/23 15:36 Respiratory Rate 18 06/17/23 15:36 Respiratory Effort Normal 06/17/23 15:47 Blood Pressure 144/62 H 06/17/23 15:36 Blood Pressure Position Sitting 06/17/23 15:36 Pulse Oximetry 99 06/17/23 15:36 Oxygen Delivery Method Room Air 06/17/23 15:36 Oxygen Flow Rate 0 06/17/23 15:36 Pain Level 7 06/17/23 15:36 Medical Decision Making This dictation utilizes [id number] dictation software and may contain unedited grammatical errors. 23 y/o M presents to ED today with a chief complaint of minor puncture wound fro m a nail sticking from a board yesterday- mild increase in pain and redness today, no fever. Patients' medical history: noncontributory. Family and social history: noncontributory. Pertinent exam findings / vital signs include SKIN: Warm, pink, dry, intact, very superficial not full thickness puncture into hypothenar eminence of R hand, circulation/sensation intact in all fingers, no mejia erythema, no purulent drainage, no lymphadenitis. Differential / pathologies of concern include puncture wound, cellulitis. Diagnostic studies of: -none. Interventions of: -outpatient Rx, Tdap. ED Course/Assessment/Plan: 23-year-old male presents with a minor puncture wound that appeared to barely enter the hypothenar eminence of his right hand days ago on a board with a nail sticking out of it. He has a very mild erythema without significant swelling or induration, no fluctuance or purulent drainage. He is unsure of his tetanus status and we have no records so we did update his Tdap today. I did relocation counselor him on hot compresses of the area and started him on Bactrim DS for 7 days for cellulitis. Recommend he return for any worsening signs of infection despite treatment, use Tylenol and ibuprofen for pain as needed. Findings not consistent with severe cellulitis, abscess, lymphadenitis, sepsis. Disposition of Puncuture Wound of Right Hand. Patient verbalized understanding of the plan and return to ED criteria and engaged in shared decision making. Medical Records Medical records reviewed: Yes I reviewed the patient's medical records. Quality:[facility] Health Related Social Needs: No Data to Display PFSH All Active Problems (Updated 06/17/23 @ 15:57 by SUKHJINDER Schrader) Puncture wound of right hand (Acute) Family history of early CAD (Acute) Chronic diarrhea (Acute) Bloating (Acute) 04/13/20 [facility] Displaced fracture of neck of right fifth metacarpal bone (Acute 01/02/21) Medical History Broken arm Surgical History History of dental surgery (2009) tooth extraction History of open reduction and internal fixation (ORIF) procedure (2005) left elbow- hardware removed six months after Social History Smoking/Tobacco Use Status: Current-Occasional Tobacco Type: e-cigarettes Smoking risk assessment performed?: Yes Alcohol Intake: current Alcohol Intake frequency: a few times a month Alcohol type: beer and hard liquor Drug use: Daily Substance use type: marijuana Details: throughout the day last alcoholic beverage two weeks ago, used marijuana last night 1999 Household members: family current occupation: works at [employer]. 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 Current gender identity: male What type of physical activity do you participate in: none Seatbelt use: always Drive intox or ride w/intox tour driver: No Working smoke detector in home: Yes Carbon monox detector in home: Yes Do you feel safe at home: Yes Do you feel safe in your relationship?: Yes PAWSS Have you Been Recently Intoxicated or Drunk Within the Last 30 days?: No Have you Ever Experienced Previous Episodes of Alcohol Withdrawal?: No Have you ever Experienced Withdrawal Seizures?: No Have you ever Experienced Delirium Tremens(DT)s?: No Have you ever undergone Alcohol Rehabilitation Treatment (i.e, inpt ot outpatient treatment programs)?: No Have you ever Experienced Blackouts?: No Have you ever Combined Alcohol with other Downers within the last 90 days?: No Have you ever Combined Alcohol with any other Substance of Abuse during the last 90 days?: No Positive Blood Alcohol level on Presentation? [PCS.BAL]: No Evidence of Increased Autonomic Activity (i.e. HR>120, tremor, sweating, agitation, nausea)?: No Result: 0
== END 2023-06-17 16:14 | disposition home or self-care (01) ==
LOC: ER 16:14
PROVIDERS: Emergency Provider Physician Assistant; PCP Family Medicine
DX: S61.431A Puncture wound without foreign body of right hand, initial encounter (principal); Z23 Encounter for immunization; F17.290 Nicotine dependence, other tobacco product, uncomplicated; W45.0XXA Nail entering through skin, initial encounter; Y93.89 Activity, other specified; Y92.89 Other specified places as the place of occurrence of the external cause
CPT/HCPCS: 90471; 90715; 99283

== ENCOUNTER 2023-07-28 11:25 | Outpatient (CLI) | payer MEDICAID, SELFPAY ==
[2023-07-28 10:40] LABS: Anion Gap 7.8 mmol/L (3-11); BUN 13 mg/dL (7-18); CO2 28.2 mmol/L (21.0-32.0); CREATININE 0.9 mg/dL (0.70-1.30); Calcium 9.2 mg/dL (8.5-10.1); Chloride 105 mmol/L (98-107); Estimated GFR 121.55 (mL/min/1.73m2); Glucose 113 mg/dL (74-106); Potassium 4.1 mmol/L (3.5-5.1); Sodium 141 mmol/L (136-145)
== END 2023-07-28 11:26 | disposition home or self-care (01) ==
LOC: LBO 11:35
PROVIDERS: PCP Family Medicine; Visit Provider Family Medicine
DX: T67.9XXA Effect of heat and light, unspecified, initial encounter (principal); R00.2 Palpitations; X58.XXXA Exposure to other specified factors, initial encounter
CPT/HCPCS: 36415; 80048

== ENCOUNTER 2023-08-07 08:34 | Outpatient (RCR) | payer MEDICAID, SELFPAY ==
--- NOTE | 2023-08-11 07:30 | HOLTER_ITS ---
APPROVED REPORT Conclusion This is a 24-hour Holter monitor Rhythm throughout was sinus with an average heart rate of 57. Minimum was 37, maximum 120 There were occasional ventricular ectopic beats There were rare atrial premature beats There was no atrial fibrillation, no high-grade AV block, no pauses greater than 3 seconds
== END 2023-08-11 13:49 ==
LOC: CARDOPNVT 08:34
PROVIDERS: PCP Family Medicine; Visit Provider Family Medicine
DX: R00.2 Palpitations (principal)
CPT/HCPCS: 93225; 93226

== ENCOUNTER 2023-09-26 11:24 | Emergency (ER) | payer MEDICAID, SELFPAY ==
[2023-09-26 11:26] VITALS: BP 151/73; PULSE 68; RESP 16; TEMP 36.4; O2SAT 98
--- NOTE | 2023-09-26 13:00 | DI.RAD_ITS ---
Exam(s) XR CHEST 2V PA LATERAL EXAM: XR CHEST 2V PA LATERAL CLINICAL HISTORY: cough TECHNIQUE: 2D digital imaging was performed of the chest. Two images were obtained. PA and lateral views were obtained. COMPARISON: CR,XR XR CHEST 2V PA LATERAL from 11/15/2019 FINDINGS: MEDIASTINUM: Normal. HEART: Normal. PULMONARY VASCULATURE: Normal. LUNGS: There is no focal consolidating infiltrate. There is an opacity on the PA view in the right l frances base which appears to be a summation of shadows. The lateral view shows no corresponding infiltr ate. PLEURAL SPACE: No pleural effusion or pneumothorax. BONE:Within normal limits for the patient's age. OTHER FINDINGS:Normal. IMPRESSION: No definite acute pulmonary process. DATA REPOSITORY: RADIATION DOSE DELIVERED:
--- NOTE | 2023-09-26 13:05 | ED.GENADUL_ITS ---
Discharge Plan Disposition Patient Disposition: Home Condition: Good Discharge Details Clinical Impression: URI (upper respiratory infection), Asthma Primary Care Provider: Tyson Sequeira ED Provider: Manisha Paz Home Meds and New Rx's Prescriptions: No Action No Known Home Meds Discharge Instructions Instructions: Albuterol, Asthma, Adult ED, Upper Respiratory Infection ED Additional Instructions: Your x-ray is reassuring, no evidence of pneumonia. Your exam is most consistent with you having some inflammation associated with likely viral illness. This is likely exacerbating her known asthma. Please encourage hydration. Tylenol and ibuprofen as needed for discomfort or fevers. Please use the albuterol inhaler 2 puffs 4 times daily as needed for wheezing, cough or shortness of breath. Please follow-up with primary care provider in the next week for reevaluation. You are negative for flu, COVID while here. If you develop chest pain, shortness of breath, inability stay hydrated or other new/worsening symptom please seek care urgently once again. Stand Alone Forms: Work Release Referrals: Tyson Sequeira DO [Primary Care Provider] - [facility] General Date/Time Provider Initiated Documentation: 09/26/23 11:39 . Limitations to Documentation: no limitations . Information obtained by: patient and RN notes reviewed . History of Present Illness 23 year old M presents to the emergency department with the chief complaint of Cold-like symptoms for 1 week, described as moderate, Patient started experiencing this day(s) and it has been intermittent (Symptoms have seemed to wax and wane). No relieving factors improve symptom(s), No exacerbating factors reported . Patient notes no other symptoms.. Patient did receive the following treatments prior to arrival, none Related Data Home Medications ?Medication ?Instructions ?Recorded ?Confirmed Unknown [No Known Home Meds] 07/28/23 07/28/23 Allergies Allergy/AdvReac Type Severity Reaction Status Date / Time No Known Allergies Allergy Verified 07/28/23 09:03 General Stated Complaint: RespSymp ELENO: 4 Review of Systems Constitutional Constitutional: Reports as per HPI, Denies chills, Denies fever(s) and Denies poor appetite Cardiovascular Cardiovascular: Denies chest pain Respiratory Respiratory: Denies cough Gastrointestinal Gastrointestinal: Denies abdominal pain, Denies change in bowel habits, Denies nausea and Denies vomiting Genitourinary Genitourinary: Reports as per HPI Musculoskeletal Musculoskeletal: Reports as per HPI Integumentary/Breasts Skin/Breast: Reports as per HPI Exam Const General: cooperative, healthy appearing, comfortable, no acute distress, well developed and well groomed Nutritional Appearance: average body habitus and well nourished Orientation: alert and awake Resp Effort & Inspection: normal respiratory effort and no respiratory distress Auscultation: no rales, no rhonchi and wheezes expiratory wheezes and scattered wheezes Cardio Rate: regular rate Rhythm: regular rhythm Heart Sounds: S1 normal and S2 normal Neuro General: patient alert and patient awake Cognition: normal cognition Speech: speech normal Gait: normal gait Course Vital Signs Vital signs: Vital Signs Temperature 36.4 C L 09/26/23 11:26 Pulse 68 09/26/23 11:26 Respiratory Rate 16 09/26/23 11:26 Blood Pressure 151/73 H 09/26/23 11:26 Pulse Oximetry 98 09/26/23 11:26 Temperature 36.4 C L 09/26/23 11:26 Pulse 68 09/26/23 11:26 Respiratory Rate 16 09/26/23 11:26 Blood Pressure 151/73 H 09/26/23 11:26 Pulse Oximetry 98 09/26/23 11:26 Oxygen Delivery Method Room Air 09/26/23 11:26 Oxygen Flow Rate 0 09/26/23 11:26 Pain Level 2 09/26/23 11:26 Comment pain with coughing only 09/26/23 11:26 Medical Decision Making Patient is a pleasant 23-year-old male, past medical history significant for sports induced asthma, active smoker, presenting today with chief complaint of cough. He reports he has been ill for the past week. States that initially began with more congestion. Also endorses sore throat but states that this is not subsided. States that he does get cold sores and has had a few of these as well. Denies any GI upset. No fevers or chills. States that initially began to get better but then cough began to increase again. 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 On exam, patient appears nontoxic. Hemodynamically stable. HEENT exam shows small vesicular lesions on upper lip consistent with his history of cold sores. He does have some mild tonsillar enlargement. No evidence to suggest obstruction, difficulty swallowing, peritonsillar abscess. No displacement of the uvula. No lymphadenopathy. He has scattered expiratory wheezing throughout. Will obtain a chest x-ray to evaluate for any potential infectious etiology but more likely, viral illness causing exacerbation of underlying asthma. Patient does not have a nebulizer or inhaler at home, will give this here, along with a spacer. Will also obtain viral panel. Negative flu and covid MEDIASTINUM: Normal. HEART: Normal. PULMONARY VASCULATURE: Normal. LUNGS: There is no focal consolidating infiltrate. There is an opacity on the PA view in the right lung base which appears to be a summation of shadows. The lateral view shows no corresponding infiltrate. PLEURAL SPACE: No pleural effusion or pneumothorax. BONE:Within normal limits for the patient's age. OTHER FINDINGS:Normal. IMPRESSION: No definite acute pulmonary process. Discussed findings with the patient. He was given albuterol inhaler with a spacer while here. Encouraged hydration and supportive care. Encouraged follow-up with primary care. Return precautions discussed. Work note given. I believe most of his symptoms are worsening with the inflammatory and reactive airway component rather than the significant infection, air quality has also been poor recently. I do not see indication for antibiotics at this point. Discussed this as well with the patient. All of his questions and concerns were addressed patient is agreement this plan. Quality:SDOH Health Related Social Needs: No Data to Display PFSH All Active Problems (Updated 09/26/23 @ 14:13 by SUKHJINDER Davison) Asthma (Chronic) URI (upper respiratory infection) (Acute) Heat exposure (Acute) Family history of early CAD (Acute) Chronic diarrhea (Acute) Bloating (Acute) 04/13/20 GI [facility] Displaced fracture of neck of right fifth metacarpal bone (Acute 01/02/21) Medical History Broken arm Surgical History History of dental surgery (2009) tooth extraction History of open reduction and internal fixation (ORIF) procedure (2005) left elbow- hardware removed six months after Social History Smoking/Tobacco Use Status: Current-Occasional Tobacco Type: e-cigarettes Smoking risk assessment performed?: Yes Alcohol Intake: current Alcohol Intake frequency: a few times a month Alcohol type: beer and hard liquor Drug use: Daily Substance use type: marijuana Details: throughout the day last alcoholic beverage two weeks ago, used marijuana last night 1999 Household members: family current occupation: works at [employer]. 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
[2023-09-26] MEDS: Albuterol HFA 8 GM 60 PUFF INH IH (13:54)
[2023-09-26] MEDS: Inhaler, Assist Device 1 EACH MC (13:56)
[2023-09-26 14:22] VITALS: BP 126/86; BP 151/73; PULSE 54; PULSE 68; RESP 15; RESP 16; TEMP 36.4; TEMP 36.6; O2SAT 98
== END 2023-09-26 14:28 | disposition home or self-care (01) ==
PROVIDERS: Emergency Provider Physician Assistant; PCP Family Medicine
DX: F17.210 Nicotine dependence, cigarettes, uncomplicated; J06.9 Acute upper respiratory infection, unspecified; J45.909 Unspecified asthma, uncomplicated
CPT/HCPCS: 87426; 94640; 99284; 71046; 99283

== ENCOUNTER 2023-10-14 05:41 | Outpatient (CLI) | payer MEDICAID, SELFPAY ==
[2023-10-14] MEDS: Levalbuterol HFA 15 GM INH 4 PUFF IH (11:43)
[2023-10-14] MEDS: Inhaler, Assist Device 1 EACH MC (11:44)
--- NOTE | 2023-10-22 13:00 | PFT_ITS ---
Date of service: 11/13/23 Time of Service: 10:06 Pulmonary Function Test Result Requesting Provider Tyson Sequeira Indications: Wheezing, dyspnea on exertion, seasonal allergies, vapes and smokes marijuana. Pulmonary medications: Albuterol, not used before this test. Interpretation Spirometry: Spirometry pre and postbronchodilator show: 1. Mild airway obstruction, which nearly normalized after bronchodilator. The FEV1 FVC was at the lower limit of normal but other airflows were normal postbronchodilator 2. Borderline response to bronchodilator. 3. No evidence of restriction, the forced vital capacity was 102% predicted. 4. Review of raw data tracings indicated a good patient effort, and review of graphic data shows the testing at [place] [employer] standards of acceptability and repeatability. 5. If further evaluation of possible airway reactivity is clinically indicated, methacholine challenge testing is recommended. Lung Volumes: Not done Diffusion Capacity: Not done Impression Spirometry shows mild, completely reversible airway obstruction with borderline bronchodilator response. This is suggestive of, but not diagnosis of reactive airways disease (asthma) If further evaluation of possible airway reactivity is clinically indicated, methacholine challenge testing is recommended.
== END 2023-10-14 05:42 | disposition home or self-care (01) ==
PROVIDERS: PCP Family Medicine; Visit Provider Family Medicine
DX: R06.2 Wheezing (principal); R06.09 Other forms of dyspnea; J30.2 Other seasonal allergic rhinitis; F17.290 Nicotine dependence, other tobacco product, uncomplicated; F12.90 Cannabis use, unspecified, uncomplicated
CPT/HCPCS: 00123; 94060

== ENCOUNTER 2024-11-01 11:00 | Emergency (ER) | payer SELFPAY ==
--- NOTE | 2024-11-01 11:00 | DI.RAD_ITS ---
Exam(s) XR PELVIS AP XR FEMUR RT EXAM: XR PELVIS AP CLINICAL HISTORY: right hip pain s/p fall. TECHNIQUE: 2D digital imaging was performed. Single AP view of the pelvis. AP and lateral views of the femur COMPARISON: CR XR FEMUR RT from 11/01/2024 FINDINGS: BONES: No acute fracture is present. No bony destructive lesion is seen. JOINTS: No dislocation present. No joint space narrowing is present. SOFT TISSUE: Normal. IMPRESSION: No acute abnormality. DATA REPOSITORY: RADIATION DOSE DELIVERED:
[2024-11-01 11:02] VITALS: BP 135/88; PULSE 87; RESP 18; TEMP 36.7; O2SAT 97
--- NOTE | 2024-11-01 11:15 | W.ED.GENAD ---
Discharge Plan Disposition Patient Disposition: Home Condition: Stable Discharge Details Clinical Impression: Strain of muscle of right groin region Primary Care Provider: Tyson Sequeira ED Provider: Isidro Pink Home Meds and New Rx's Prescriptions: No Action No Known Home Meds Discharge Instructions Additional Instructions: Your x-ray did not show any concerning findings. You can take 1000 mg of acetaminophen and 600 mg of ibuprofen every 6 hours as needed. If you are not improving in 1 to 2 weeks follow-up with your primary care provider or express care. If you feel significantly more ill or have severe worsening pain return to the emergency department for reevaluation. HPI General Mode of arrival: ambulatory. Date/Time Provider Initiated Documentation: 11/01/24 11:01. Limitations to Documentation: no limitations. Information obtained by: patient. History of Present Illness 24 year old M presents to the emergency department with the chief complaint of right hip/groin pain s/p fall 2 days ago, described as moderate, Quality is described as aching, Patient started experiencing this day(s) (2) and it has been constant. Rest improves symptom(s), Movement worsens symptoms . Patient notes no other symptoms.. Patient did receive the following treatments prior to arrival, none Related Data Home Medications ?Medication ?Instructions ?Recorded ?Confirmed Unknown [No Known Home Meds] 11/01/24 11/01/24 Allergies Allergy/AdvReac Type Severity Reaction Status Date / Time No Known Allergies Allergy Verified 11/01/24 11:07 General Stated Complaint: Orthopedic ELENO: 3 Review of Systems All systems reviewed & are unremarkable except as noted in HPI and below Constitutional Constitutional: Denies chills, Denies fever(s) and Denies weakness Cardiovascular Cardiovascular: Denies chest pain and Denies dyspnea Respiratory Respiratory: Denies cough and Denies dyspnea Gastrointestinal Gastrointestinal: Denies abdominal pain, Denies nausea and Denies vomiting Musculoskeletal Musculoskeletal: Reports arthralgias Neurologic Neurologic: Denies weakness Exam Const General: no acute distress Orientation: alert HENMN Head: normal to inspection Ears: external ears normal General nose exam: external nose normal Mouth: moist mucous membranes Eyes General: appearance normal, both eyes and all related structures Neck Neck: normal visual inspection Resp Effort & Inspection: normal respiratory effort and able to speak in complete sentences Cardio Rate: regular rate Skin General skin exam: no rashes or lesions noted Neuro General: patient alert and patient oriented x3 Extrem General: normal to inspection and full ROM Psych Mental Status: mental status grossly normal Course Vital Signs Vital signs: Vital Signs Temperature 36.7 C 11/01/24 11:02 Pulse 87 11/01/24 11:02 Respiratory Rate 18 11/01/24 11:02 Blood Pressure 135/88 11/01/24 11:02 Pulse Oximetry 97 11/01/24 11:02 Temperature 36.7 C 11/01/24 11:02 Temperature Source Oral 11/01/24 11:02 Pulse 87 11/01/24 11:02 Respiratory Rate 18 11/01/24 11:02 Blood Pressure 135/88 11/01/24 11:02 Pulse Oximetry 97 11/01/24 11:02 Oxygen Delivery Method Room Air 11/01/24 11:02 Oxygen Flow Rate 0 11/01/24 11:02 Pain Level 4 11/01/24 11:02 Medical Decision Making 24-year-old male comes in with right hip and groin pain. He says that Friday he was carrying a large piece of wood to a campfire when he tripped and landed on his right knee. He did not hit his head or have loss of consciousness. He says he has discomfort in the right hip and groin since so came here for evaluation. He is well-appearing and bearing weight without any evidence of a limp. He has full range of motion of the hip, knee and ankle. He has no tenderness anywhere on the right lateral hip and right groin area. There is no palpable hernias. There is no scrotal tenderness or swelling. No abdominal tenderness. I suspect hip versus groin strain, will check an x-ray though my suspicion for fracture is low. He has full range of motion of the hip so I doubt any significant ligamentous or tendon or muscle tear. X-rays negative on my read, patient is stable. I suspect muscle strain. He will follow-up with either express care or his PCP if not improving in 1 to 2 weeks and return precautions given Differential Diagnosis Differential Diagnosis: Contusion, strain PFSH All Active Problems (Updated 11/01/24 @ 12:47 by Isidro Pink MD) Strain of muscle of right groin region (Acute) Wheezing (Acute) Heat exposure (Acute) Family history of early CAD (Acute) Chronic diarrhea (Acute) Bloating (Acute) 04/13/20 [facility] [place] Displaced fracture of neck of right fifth metacarpal bone (Acute 01/02/21) Medical History Broken arm Surgical History History of dental surgery (2009) tooth extraction History of open reduction and internal fixation (ORIF) procedure (2005) left elbow- hardware removed six months after Social History Smoking/Tobacco Use Status: Current-Occasional Tobacco Type: e-cigarettes Smoking risk assessment performed?: Yes Alcohol Intake: current Alcohol Intake frequency: a few times a month Alcohol type: beer and hard liquor Drug use: Daily Substance use type: marijuana Details: throughout the day last alcoholic beverage two weeks ago, used marijuana last night 1999 Household members: family Housing: apartment current occupation: works at [employer]. 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
[2024-11-01 12:53] VITALS: BP 148/63; PULSE 89; RESP 16; O2SAT 95
== END 2024-11-01 12:57 | disposition home or self-care (01) ==
PROVIDERS: Emergency Provider Emergency Medicine; PCP Family Medicine
DX: S39.011A Strain of muscle, fascia and tendon of abdomen, initial encounter (principal); M25.561 Pain in right knee; F17.290 Nicotine dependence, other tobacco product, uncomplicated; W18.39XA Other fall on same level, initial encounter; Y93.89 Activity, other specified; Y92.833 Campsite as the place of occurrence of the external cause
CPT/HCPCS: 73552; 99283; 72170